=== PATIENT | female | born 1975 | race African-American/Black ===

== ENCOUNTER 2016-03-05 08:55 | Emergency (ER) | payer MEDICAID ==
[2016-03-05 09:12] VITALS: TEMP 98.3; BMI 39.8
[2016-03-05 09:40] LABS: CA OXALATE 1+; LEUKOCYTES/URINE 2+ (NEGATIVE); NITRITE/URINE NEG (NEGATIVE); URINE OCCULT BLOOD 2+ (NEG/TRACE); WBC/URINE TNTC (0-5)
--- NOTE | 2016-03-05 10:18 | EDPRACDOC ---
- General Information Chief Complaint: Female Urogenital Problems Stated Complaint: URINARY PROBLEM Time Seen by Provider: 03/05/16 10:11 Mode Of Arrival: Car Home Medications: Home Medications Amoxicillin Trihydrate [Amoxicillin] 500 mg PO TID #21 tab 06/29/14 Hydrocodone Bit/Acetaminophen [Lortab 5/325] 1 tab PO Q4-6H PRN #15 tab Ciprofloxacin HCl [Cipro] 500 mg PO BID #14 tab 03/05/16 Ketorolac Tromethamine 10 mg PO Q8H PRN #15 tab 03/05/16 Allergies/Adverse Reactions: Allergies Allergy/AdvReac Type Severity Reaction Status Date / Time Sulfa (Sulfonamide Allergy Hives* Verified 03/05/16 09:12 Antibiotics) - History of Present Illness HPI: Pt c/o chills, R suprapubic pain, R flank pain x week. C/o frequency. Denies vaginal bleeding or discharge, changes in bowel rash. Onset: 02/29/16 Urinary Pain Location: Reports: Suprapubic, Right Flank Symptom Onset: Reports: Spontaneous Pain Severity: Mild Pain Quality: Reports: Aching, Burning History of: Reports: UTI Oral Intake: Normal Urinary Output: Normal Associated Signs and Symptoms: Reports: Abdominal Pain, Flank Pain ED Past Medical History - History Reviewed Yes Nurses notes reviewed and agree except as marked - Social Medical History Smoking Status: Never smoker ETOH: Social Substance Abuse: None EDM Review of Systems - Review of Systems Constitutional: Chills Respiratory: No Symptoms Reported. negative: Cough, Brassy Cough, Barky Cough, Shortness of Breath, Wheezing, Hemoptysis Cardiovascular: No Symptoms Reported. negative: Chest Pain, Palpitations, Syncope, Edema, Orthopnea, PND, Skin Mottling, Cyanosis Gastrointestinal: Pain Genitourinary: Frequency, Flank Pain Neurological: No Symptoms Reported. negative: Headache, Dizziness, Seizure, Numbness, Weakness, Speech Difficulty, Gait Difficulty Musculoskeletal: Back Integumentary: No Symptoms Reported. negative: Itching, Rash, Bruising, Wound Allergic/Immunologic: No Symptoms Reported. negative: Hives, Itching Hematologic: No Symptoms Reported. negative: Lymphadenopathy, Easy Bruising, Easy Bleeding Psychiatric: No Symptoms Reported. negative: Anxiety, Depression, Hallucinations, Insomnia, Suicidal - Physical Exam Constitutional: No apparent distress, Alert Oriented to: Time, Person, Place Last recorded Vital Signs: Last Vital Signs Temp 98.3 F 03/05/16 09:09 Pulse 70 03/05/16 09:09 Resp 18 03/05/16 09:09 BP 124/55 L 03/05/16 09:09 Pulse Ox 100 03/05/16 09:09 Oxygen Pulse Oxygen Saturation 100 O2 Device Oxygen Flow Rate Fraction of Inspired Oxygen ( FIO2) - HEENT Head: Normal ( normocephalic) Neck: Normal (FROM, trachea at midline) - Respiratory/Cardiovascular Respiratory: Normal - CTA (BBS clear to auscultation without adventitious sounds ) Cardiovascular: Normal (RRR without murmur, gallop or rub) - GI Auscultation: Normal (NABS) Palpation: Normal (Soft,No rebound or guarding, non distended) Tenderness: Non tender - Musculoskeletal Back: Normal (Non-Tender) Extremities: Normal (Normal tone, Pulses 2+ No cyanosis or edema, FROM) - Integumentary Skin: Normal, Warm, Dry Lymphatics: Normal (no adenopathy) - Neurologic Memory Impaired: Normal Motor Function: Normal (Normal tone, Pulses 2+ No cyanosis or edema, FROM) Mood Description: Normal Perception: Normal - Differential Diagnosis Pyelonephritis, UTI - Results Urine Color Yellow 03/05/16 09:08 Urine Clarity Cldy 03/05/16 09:08 Urine pH 5.0 (5.0-8.0) 03/05/16 09:08 Ur Specific [place] 1.020 (1.003-1.035) 03/05/16 09:08 Urine Protein Neg (NEG/TRACE) 03/05/16 09:08 Urine Glucose (UA) Neg (NEGATIVE) 03/05/16 09:08 Urine Ketones Neg (NEGATIVE) 03/05/16 09:08 Urine Occult Blood 2+ (NEG/TRACE) H 03/05/16 09:08 Urine Nitrite Neg (NEGATIVE) 03/05/16 09:08 Urine Bilirubin Neg (NEGATIVE) 03/05/16 09:08 Urine Urobilinogen <2.0 MG/DL (0-1) 03/05/16 09:08 Ur Leukocyte Esterase 2+ (NEGATIVE) H 03/05/16 09:08 Urine RBC 10-20 (0-5) H 03/05/16 09:08 Urine WBC Tntc (0-5) H 03/05/16 09:08 Urine WBC Clumps Present (NONE) H 03/05/16 09:08 Ur Epithelial Cells 1+ 03/05/16 09:08 Calcium Oxalate Crystal 1+ 03/05/16 09:08 Urine Mucus Occ (NEG/OCC) 03/05/16 09:08 Urine Test Neg (NEGATIVE) 03/05/16 09:08 Lab Results 03/05/16 03/05/16 09:08 09:08 Urine Color Yellow Urine Clarity Cldy Urine pH 5.0 Ur Specific [place] 1.020 Urine Protein Neg Urine Glucose (UA) Neg Urine Ketones Neg Urine Occult Blood 2+ H Urine Nitrite Neg Urine Bilirubin Neg Urine Urobilinogen <2.0 Ur Leukocyte Esterase 2+ H Urine RBC 10-20 H Urine WBC Tntc H Urine WBC Clumps Present H Ur Epithelial Cells 1+ Calcium Oxalate Crystal 1+ Urine Mucus Occ Urine Test Neg Decision Time to Discharge: 10:18 - Departure Disposition: Home Condition: Good Final Diagnosis: UTI (urinary tract infection) Qualifiers: Urinary tract infection type: acute cystitis Hematuria presence: with hematuria Qualified Code(s): N30.01 - Acute cystitis with hematuria Instructions: Urinary Tract Infection in Women (ED), Dysuria Education/Counseling Given To: Patient Education/Counseling Given Regarding: Diagnosis, Treatment, Follow Up Referrals: None,No Provider [Primary Care Provider] - One Week Prescriptions: New Ciprofloxacin HCl [Cipro] 500 mg PO BID #14 tab Ketorolac Tromethamine 10 mg PO Q8H PRN #15 tab PRN Reason: Pain No Action Amoxicillin Trihydrate [Amoxicillin] 500 mg PO TID #21 tab Hydrocodone Bit/Acetaminophen [Lortab 5/325] 1 tab PO Q4-6H PRN #15 tab PRN Reason: Pain Additional Instructions: Increase fluids. Return for worse or different symptoms.
[2016-03-05 10:44] VITALS: BP 122/60; PULSE 65
== END 2016-03-05 10:32 | disposition home or self-care (01) ==
LOC: ED 08:55
DX: N30.01 Acute cystitis with hematuria (principal)
CPT/HCPCS: 81001; 81025; 99282